=== PATIENT | female | born 1995 | race American Indian/Alaskan Native ===

== ENCOUNTER 2016-08-17 14:13 | Emergency (ER) | payer OTHER ==
[2016-08-17 14:43] VITALS: BP 138/93
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
--- NOTE | 2016-08-18 07:19 | XRay Report ---
ROUTINE CHEST, TWO VIEWS: HISTORY: chest pain. The trachea, heart, mediastinal contour, lung nguyen and bony thorax are unremarkable. IMPRESSION: Unremarkable chest x-ray.
== END 2016-08-17 19:50 | disposition left against medical advice (07) ==
LOC: ED 14:13
DX: S90.812A Abrasion, left foot, initial encounter (principal); R07.81 Pleurodynia; Z53.21 Procedure and treatment not carried out due to patient leaving prior to being seen by health care provider; W18.30XA Fall on same level, unspecified, initial encounter; Y93.9 Activity, unspecified; Y92.9 Unspecified place or not applicable; Y99.9 Unspecified external cause status
CPT/HCPCS: 71020

== ENCOUNTER 2017-07-07 10:48 | Emergency (ER) | payer OTHER ==
[2017-07-07 11:06] VITALS: BP 131/92
[2017-07-07 12:02] LABS: Basophils % (Auto) 0.5 % (0.0-1.8); Eosinophils % (Auto) 0.5 % (0.0-4.3); Hematocrit 40.7 % (30.3-42.9); Hemoglobin 13.7 gm/dl (10.1-14.3); Mean Corpuscular HGB Conc 34 % (30-34); Mean Corpuscular Hemoglobin 28 pg (28-32); Mean Corpuscular Volume 84 fl (79-97); Platelet Count 348 K/mm3 (140-440); Red Blood Count 4.87 M/mm3 (3.65-5.03); Red Cell Distribution Width 14.2 % (13.2-15.2); White Blood Count 19.8 K/mm3 (4.5-11.0)
[2017-07-07 12:18] LABS: Anion Gap 19 mmol/L; BUN/Creatinine Ratio 20; Blood Urea Nitrogen 10 mg/dL (7-17); Calcium 9.4 mg/dL (8.4-10.2); Carbon Dioxide 25 mmol/L (22-30); Chloride 99.5 mmol/L (98-107); Glucose 92 mg/dL (65-100); Potassium 3.8 mmol/L (3.6-5.0); Sodium 140 mmol/L (137-145)
--- NOTE | 2017-07-07 13:07 | Emergency Department Report ---
ED Psych HPI - General Chief Complaint: Psych Stated Complaint: SUICIDE ATTEMPTS Time Seen by Provider: 07/07/17 12:55 Source: patient, family Mode of arrival: Ambulatory - History of Present Illness Initial Comments: Patient is 22 years old female history of depression, presented to the ER with suicidal thoughts for the last few days. Patient stated that she was just evicted from her apartment after her left. Patient stated that she has nothing to live for. She had a history of previous suicidal attempts as it was overdosing on medication. She stated that she might do the same thing. She denied any homicidal ideation, no visual or auditory hallucination. MD Complaint: suicidal ideation, feels depressed -: Gradual Associated Psychiatric Symptoms: depression, suicidal ideation Quality: constant Context: recent alcohol abuse Associated Symptoms: denies other symptoms If Self Harm: admits thoughts of, has plan, intentional overdose - Related Data Home Medications Medication Instructions Recorded Confirmed Last Taken No Known Home Medications [No 07/07/17 07/07/17 Unknown Reported Home Medications] Allergies Allergy/AdvReac Type Severity Reaction Status Date / Time amoxicillin trihydrate Allergy Swelling Verified 08/17/16 14:44 [From Augmentin] potassium clavulanate Allergy Swelling Verified 08/17/16 14:44 [From Augmentin] ED Review of Systems ROS: Stated complaint: SUICIDE ATTEMPTS Other details as noted in HPI Comment: All other systems reviewed and negative Constitutional: denies: chills, fever Respiratory: denies: cough, orthopnea, shortness of breath, SOB with exertion Gastrointestinal: denies: abdominal pain, nausea, vomiting, diarrhea, constipation, hematemesis, melena, hematochezia Genitourinary: denies: urgency, dysuria, hematuria Skin: denies: rash, lesions Neurological: denies: headache, weakness, numbness, paresthesias Psychiatric: depression, suicidal thoughts. denies: auditory hallucinations, visual hallucinations, homicidal thoughts ED Past Medical Hx - Past Medical History Previous Medical History?: No - Surgical History Past Surgical History?: No - Social History Smoking Status: Current Some Day Smoker Substance Use Type: Alcohol, Marijuana - Medications Home Medications: Home Medications Medication Instructions Recorded Confirmed Last Taken Type No Known Home Medications [No 07/07/17 07/07/17 Unknown History Reported Home Medications] ED Physical Exam - General Limitations: No Limitations General appearance: alert, anxious, other (patient is very tearful.) - Head Head exam: Present: atraumatic, normocephalic, normal inspection - Eye Eye exam: Present: normal appearance, PERRL - ENT ENT exam: Present: normal exam, normal orophraynx, mucous membranes moist - Neck Neck exam: Present: normal inspection, full ROM. Absent: tenderness, meningismus, lymphadenopathy, thyromegaly - Respiratory Respiratory exam: Present: normal lung sounds bilaterally. Absent: respiratory distress, wheezes, rales, rhonchi, stridor, chest wall tenderness, accessory muscle use, decreased breath sounds, prolonged expiratory - Cardiovascular Cardiovascular Exam: Present: normal rhythm, tachycardia - GI/Abdominal GI/Abdominal exam: Present: soft, normal bowel sounds. Absent: tenderness, guarding, rebound, rigid, organomegaly, mass, bruit, pulsatile mass, hernia - Extremities Exam Extremities exam: Present: normal inspection, full ROM, normal capillary refill - Back Exam Back exam: Present: normal inspection. Absent: tenderness, CVA tenderness (R), CVA tenderness (L) - Neurological Exam Neurological exam: Present: alert, oriented X3, CN II-XII intact, normal gait - Psychiatric Psychiatric exam: Present: depressed, anxious, suicidal ideation. Absent: flat affect, manic, homicidal ideation - Skin Skin exam: Present: warm, intact, normal color ED Course Vital Signs 07/07/17 11:03 Temperature 99.2 F Pulse Rate 111 H Respiratory 16 Rate Blood Pressure 131/92 O2 Sat by Pulse 98 Oximetry ED Medical Decision Making - Lab Data Result diagrams: 07/07/17 11:47 07/07/17 11:47 Critical care attestation.: If time is entered above; I have spent that time in minutes in the direct care of this critically ill patient, excluding procedure time. ED Disposition Clinical Impression: Suicidal ideation, Depression Disposition: DC/TX-65 PSY HOSP/PSY UNIT Is pt being admited?: No Condition: Stable Referrals: GERALD BAINS MD [Primary Care Provider] - 3-5 Days
[2017-07-07] MEDS ORDERED: LEVAQUIN PO ONE (13:09)
[2017-07-07 14:00] LABS: Urine Drugs of Abuse Note Disclamer
[2017-07-07 14:38] LABS: Bilirubin,Urine NEG (Negative); Blood,Urine SM (Negative); Ketones,Urine 80 mg/dL (Negative); Leukocyte Esterase,Urine TR (Negative); Mucus,Urine 3+ /HPF; Nitrite,Urine NEG (Negative)
== END 2017-07-08 02:10 ==
LOC: ED 10:48 → EEVIPCON 10:48 → ED 07-08 02:10
DX: F32.9 Major depressive disorder, single episode, unspecified (principal); F17.200 Nicotine dependence, unspecified, uncomplicated; F12.10 Cannabis abuse, uncomplicated; Z88.1 Allergy status to other antibiotic agents
CPT/HCPCS: 36415; 80048; 80307; 81001; 84703; 85025; G0480; 80320; 99285

== ENCOUNTER 2017-07-19 03:18 | Emergency (ER) | payer OTHER ==
[2017-07-19 04:08] LABS: Hematocrit 42.2 % (30.3-42.9); Hemoglobin 14.1 gm/dl (10.1-14.3); Mean Corpuscular HGB Conc 33 % (30-34); Mean Corpuscular Hemoglobin 28 pg (28-32); Mean Corpuscular Volume 83 fl (79-97); Platelet Count 350 K/mm3 (140-440); Red Blood Count 5.07 M/mm3 (3.65-5.03); White Blood Count 19.8 K/mm3 (4.5-11.0)
[2017-07-19] MEDS ORDERED: GEODON IM ONE (04:22)
[2017-07-19 04:26] LABS: Anion Gap 23 mmol/L; BUN/Creatinine Ratio 22; Blood Urea Nitrogen 11 mg/dL (7-17); Calcium 9.9 mg/dL (8.4-10.2); Carbon Dioxide 25 mmol/L (22-30); Chloride 93.8 mmol/L (98-107); Glucose 100 mg/dL (65-100); Potassium 3.4 mmol/L (3.6-5.0); Sodium 138 mmol/L (137-145)
--- NOTE | 2017-07-19 04:27 | Emergency Department Report ---
ED Psych HPI - General Chief Complaint: Psych Stated Complaint: ETOH/SUBSTANCE ABUSE Time Seen by Provider: 07/19/17 04:21 Source: patient Mode of arrival: Ambulatory - History of Present Illness Initial Comments: Patient is 22 years old female, history of depression and suicidal ideation and suicidal attempts before brought by her mother for evaluation after she started having auditory and visual hallucination and suicidal thoughts. Patient is very aggressive in the ER. MD Complaint: suicidal ideation, feels depressed Associated Psychiatric Symptoms: depression, suicidal ideation, auditory hallucinations, visual hallucinations History of same: Yes Context: recent alcohol abuse, recent drug abuse - Related Data Home Medications Medication Instructions Recorded Confirmed Last Taken No Known Home Medications [No 07/07/17 07/07/17 Unknown Reported Home Medications] Allergies Allergy/AdvReac Type Severity Reaction Status Date / Time amoxicillin trihydrate Allergy Swelling Verified 08/17/16 14:44 [From Augmentin] potassium clavulanate Allergy Swelling Verified 08/17/16 14:44 [From Augmentin] ED Review of Systems ROS: Stated complaint: ETOH/SUBSTANCE ABUSE Other details as noted in HPI Comment: All other systems reviewed and negative Constitutional: denies: chills, fever Respiratory: denies: cough, orthopnea, shortness of breath, SOB with exertion Cardiovascular: denies: chest pain, palpitations, dyspnea on exertion, orthopnea Gastrointestinal: denies: abdominal pain, nausea, vomiting, diarrhea Genitourinary: denies: urgency, dysuria, frequency Neurological: denies: headache, weakness Psychiatric: depression, auditory hallucinations, visual hallucinations. denies : homicidal thoughts, suicidal thoughts ED Past Medical Hx - Past Medical History Previous Medical History?: Yes Hx Psychiatric Treatment: Yes - Surgical History Past Surgical History?: No - Social History Smoking Status: Current Every Day Smoker Substance Use Type: Alcohol, Cocaine, Marijuana - Medications Home Medications: Home Medications Medication Instructions Recorded Confirmed Last Taken Type No Known Home Medications [No 07/07/17 07/07/17 Unknown History Reported Home Medications] ED Physical Exam - General Limitations: No Limitations General appearance: anxious, other (very agitated.) - Head Head exam: Present: atraumatic, normocephalic, normal inspection - Eye Eye exam: Present: normal appearance, PERRL - ENT ENT exam: Present: normal exam, normal orophraynx, mucous membranes moist - Neck Neck exam: Present: normal inspection, full ROM. Absent: tenderness, meningismus, lymphadenopathy - Respiratory Respiratory exam: Present: normal lung sounds bilaterally. Absent: respiratory distress, wheezes, rales, rhonchi, stridor, chest wall tenderness, accessory muscle use, decreased breath sounds, prolonged expiratory - Cardiovascular Cardiovascular Exam: Present: tachycardia - GI/Abdominal GI/Abdominal exam: Present: soft, normal bowel sounds. Absent: distended, tenderness, guarding, rebound, rigid, mass, bruit, pulsatile mass - Extremities Exam Extremities exam: Present: normal inspection, full ROM, normal capillary refill - Back Exam Back exam: Present: normal inspection. Absent: tenderness, CVA tenderness (R), CVA tenderness (L) - Neurological Exam Neurological exam: Present: alert, oriented X3, CN II-XII intact, normal gait - Psychiatric Psychiatric exam: Present: depressed, agitated, manic, suicidal ideation - Skin Skin exam: Present: warm, intact, normal color ED Course Vital Signs 07/19/17 03:31 Temperature 98.3 F Pulse Rate 113 H Respiratory 17 Rate Blood Pressure 127/92 O2 Sat by Pulse 99 Oximetry ED Medical Decision Making - Lab Data Result diagrams: 07/19/17 03:51 Critical care attestation.: If time is entered above; I have spent that time in minutes in the direct care of this critically ill patient, excluding procedure time. ED Disposition Clinical Impression: Acute psychosis, Suicidal ideation Disposition: DC/TX-65 PSY HOSP/PSY UNIT Is pt being admited?: No Condition: Stable
[2017-07-19 05:05] LABS: Blastocytes % (Manual) 0 %
[2017-07-19 05:06] LABS: Diff Status Complete; RBC Morphology Normal
[2017-07-19] MEDS ORDERED: GEODON IM PRN (05:40)
[2017-07-19 05:48] LABS: Urine Drugs of Abuse Note Disclamer
[2017-07-19 06:06] LABS: Bacteria,Urine 1+ /HPF (Negative); Bilirubin,Urine NEG (Negative); Blood,Urine NEG (Negative); Ketones,Urine 20 mg/dL (Negative); Leukocyte Esterase,Urine TR (Negative); Mucus,Urine 1+ /HPF; Nitrite,Urine NEG (Negative); Urobilinogen,Urine < 2.0 mg/dL (<2.0)
--- NOTE | 2017-07-19 10:32 | Consultation ---
History of Present Illness - Reason for Consult Consult date: 07/19/17 Reason for consult: Mental Health Evaluation Requesting physician: MELISSA SANABRIA - Chief Complaint Chief complaint: "Patient refuse to participate in interview" - History of Present Psychiatric Illness 22 AA female brought to [facility] for AVH's, SI's, and aggressive behavior per the record. Today patient refuse to talk during the assessment. When the patient was asked questions, she would turn away from me and place her head under the sheets. Per the staff, patient was combative on arrival to the hospital. Medications and Allergies Allergies Allergy/AdvReac Type Severity Reaction Status Date / Time amoxicillin trihydrate Allergy Swelling Verified 08/17/16 14:44 [From Augmentin] potassium clavulanate Allergy Swelling Verified 08/17/16 14:44 [From Augmentin] Home Medications Medication Instructions Recorded Confirmed Last Taken Type No Known Home Medications [No 07/07/17 07/19/17 Unknown History Reported Home Medications] Active Meds: Active Medications Ziprasidone (Geodon) 10 mg IM Q6H PRN PRN Reason: Agitation Last Admin: 07/19/17 05:47 Dose: 10 mg Past psychiatric history - Past Medical History Past Medical History: other (Unable to obtain) Past Surgical History: Other (Unable to obtain) - past Psychiatric treatment and history psychiatric treatment history: Unable to obtain a psy hx and fam psy hx. - Social History Social history: other (Unable to obtain) Mental Status Exam - Vital signs Last Vital Signs Temp 98.3 F 07/19/17 03:31 Pulse 113 H 07/19/17 03:31 Resp 17 07/19/17 03:31 BP 127/92 07/19/17 03:31 Pulse Ox 99 07/19/17 03:31 - Exam Narrative exam: Unable to complete MSE at this time. Results Result Diagrams: 07/19/17 03:51 07/19/17 03:51 Abnormal lab results 07/19/17 07/19/17 07/19/17 Range/Units 03:51 03:51 03:51 WBC 19.8 H (4.5-11.0) K/mm3 RBC 5.07 H (3.65-5.03) M/mm3 Seg Neutrophils # Man 12.9 H (1.8-7.7) K/mm3 Lymphocytes # (Manual) 6.1 H (1.2-5.4) K/mm3 Eosinophils # (Manual) 0.6 H (0.0-0.4) K/mm3 Basophils # (Manual) 0.2 H (0.0-0.1) K/mm3 Potassium 3.4 L (3.6-5.0) mmol/L Chloride 93.8 L (98-107) mmol/L Creatinine 0.5 L (0.7-1.2) mg/dL Urine WBC (Auto) (0.0-6.0) /HPF Plasma/Serum Alcohol 0.14 H (0-0.07) gm% 07/19/ Range/Units 04:34 WBC (4.5-11.0) K/mm3 RBC (3.65-5.03) M/mm3 Seg Neutrophils # Man (1.8-7.7) K/mm3 Lymphocytes # (Manual) (1.2-5.4) K/mm3 Eosinophils # (Manual) (0.0-0.4) K/mm3 Basophils # (Manual) (0.0-0.1) K/mm3 Potassium (3.6-5.0) mmol/L Chloride (98-107) mmol/L Creatinine (0.7-1.2) mg/dL Urine WBC (Auto) 7.0 H (0.0-6.0) /HPF Plasma/Serum Alcohol (0-0.07) gm% All other labs normal. Assessment and Plan Assessment and plan: Impression: 22 AA female brought to [facility] for AVH's, SI's, and aggressive behavior per the record. Today patient refuse to talk during the assessment. Patient positive for amphetamines, cocaine, and marijuana. Alcohol serum 0.14 on admission. Recommendation/Plan: Continue 1013 with placement to inpatient psy services. Will attempt to assess the patient in 24 hours. Monitor for withdrawals (etoh). Initiate CIWA if indicated.
[2017-07-19] MEDS ORDERED: NACL 0.9% 1000 ML 1,000 ML IV ONE (14:33)
[2017-07-19] MEDS ORDERED: ZOFRAN IV ONE (14:34)
[2017-07-19] MEDS ORDERED: K-DUR PO ONE (14:34)
[2017-07-19 15:01] LABS: Basophils % (Auto) 0.3 % (0.0-1.8); Eosinophils % (Auto) 1.8 % (0.0-4.3); Hematocrit 41.2 % (30.3-42.9); Hemoglobin 13.6 gm/dl (10.1-14.3); Mean Corpuscular HGB Conc 33 % (30-34); Mean Corpuscular Hemoglobin 27 pg (28-32); Mean Corpuscular Volume 83 fl (79-97); Platelet Count 317 K/mm3 (140-440); Red Blood Count 4.97 M/mm3 (3.65-5.03); Red Cell Distribution Width 14.4 % (13.2-15.2); White Blood Count 15.5 K/mm3 (4.5-11.0)
[2017-07-19 15:14] LABS: INR 1.06 (0.87-1.13)
[2017-07-19 15:15] LABS: Partial Thromboplastin Time 29.5 Sec. (24.2-36.6)
[2017-07-19 15:26] LABS: Alanine Aminotransferase 13 units/L (7-56); Albumin 4.4 g/dL (3.9-5); Albumin/Globulin Ratio 1.7 %; Alkaline Phosphatase 53 units/L (35-129); Creatine Kinase MB 1.5 ng/mL (0.0-4.0); Lipase 11 units/L (13-60)
[2017-07-19 15:27] LABS: Anion Gap 21 mmol/L; BUN/Creatinine Ratio 18; Blood Urea Nitrogen 11 mg/dL (7-17); Calcium 10.3 mg/dL (8.4-10.2); Carbon Dioxide 25 mmol/L (22-30); Creatine Kinase 241 units/L (30-135); Glucose 95 mg/dL (65-100); Potassium 3.2 mmol/L (3.6-5.0); Sodium 142 mmol/L (137-145)
[2017-07-19 15:29] LABS: Bilirubin,Direct < 0.2 mg/dL (0-0.2); Bilirubin,Indirect 0.4 mg/dL
[2017-07-20 09:55] VITALS: BP 111/61
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
--- NOTE | 2017-07-20 16:25 | Emergency Department Report ---
Blank Doc - Documentation Documentation: 1013 has beeen nullified. pt will follow up at [facility] ON AN [facility] FOR HER MENTAL ISSUES
[2017-07-20] MEDS ORDERED: REMERON PO SCH ×2 (22:00)
== END 2017-07-20 18:03 | disposition home or self-care (01) ==
LOC: ED 03:18 → EEVIPCON 03:18 → ED 07-20 18:03
DX: F23 Brief psychotic disorder (principal); R45.851 Suicidal ideations; F17.200 Nicotine dependence, unspecified, uncomplicated; F12.10 Cannabis abuse, uncomplicated; F14.10 Cocaine abuse, uncomplicated
CPT/HCPCS: 36415; 80048; 80074; 80307; 81001; 81025; 82140; 82550; 82553; 83690; 83735; 84484; 84702; 85007; 85025; 85610; 85730; 86850; 86900; 86901; 87040; 96361; 96372; 96374; 99284; G0480; J2405; J3486; J7030; 80320